=== PATIENT | female | born 1980 | race Caucasian/White ===

== ENCOUNTER 2017-11-26 08:45 | Emergency (ER) | payer BC ==
[2017-11-26 09:07] VITALS: RESP 18; O2SAT 100
[2017-11-26 09:19] VITALS: BMI 29.9
--- NOTE | 2017-11-26 09:49 | RAD ---
HISTORY: cough COMPARISON: 09/13/2014 TECHNIQUE: Chest PA and lateral FINDINGS: LUNGS: No active pulmonary disease. PLEURA: No significant pleural effusion identified. No pneumothorax apparent. CARDIOVASCULAR: Normal. OSSEOUS STRUCTURES: No significant abnormalities. VISUALIZED UPPER ABDOMEN: Normal. OTHER FINDINGS: None. IMPRESSION: No active disease.
--- NOTE | 2017-11-26 10:14 | C.PDOC ---
History Of Present Illness 37 y/o female presents hx of a -fib compliant with medication and a 4 day hx of fever, sore throat, and a non productive cough. The patient has no medication for current symptoms. The patient has not taken temperature but feels warm. The patient denies Chest pain, sob, and palpations. Time Seen by Provider: 11/26/17 09:13 Chief Complaint (Nursing): Flu-like Symptoms History Per: Patient History/Exam Limitations: no limitations Onset/Duration Of Symptoms: Days Current Symptoms Are (Timing): Still Present Associated Symptoms: denies: Fever, Chills Past Medical History Reviewed: Historical Data, Nursing Documentation, Vital Signs Vital Signs: Last Vital Signs Temp 97.9 F 11/26/17 10:21 Pulse 77 11/26/17 10:21 Resp 18 11/26/17 10:21 BP 103/71 11/26/17 10:21 Pulse Ox 100 11/26/17 11:17 - Medical History PMH: Atrial Fibrillation, HTN, Kidney Stones Family History: States: No Known Family Hx - Social History Hx Tobacco Use: No Hx Alcohol Use: No Hx Substance Use: No - Immunization History Hx Tetanus Toxoid Vaccination: No Hx Influenza Vaccination: No Hx Pneumococcal Vaccination: No Review Of Systems Except As Marked, All Systems Reviewed And Found Negative. Constitutional: Positive for: Fever. Negative for: Chills ENT: Positive for: Throat Pain Respiratory: Positive for: Cough (non productive ). Negative for: Shortness of Breath, Wheezing Gastrointestinal: Negative for: Nausea, Vomiting, Diarrhea Skin: Negative for: Rash Physical Exam - Physical Exam Appears: Non-toxic, No Acute Distress, Other (benign ) Skin: Dry Head: Atraumatic, Normacephalic Oral Mucosa: Moist Neck: Normal ROM, Supple Chest: Symmetrical Cardiovascular: Rhythm Regular Respiratory: Normal Breath Sounds, No Rales, No Rhonchi Extremity: Capillary Refill (2<sec.) Neurological/Psych: Oriented x3, Normal Speech, Normal Cognition Gait: Steady ED Course And Treatment O2 Sat by Pulse Oximetry: 100 (RA) Progress Note: The patient is afebrile. The chest x- ray is negative. The patient is positive for Bronchitis and is advised to have a 1-2 day follow up with the PMD for further evaluation. Medical Decision Making Medical Decision Making: HISTORY: cough COMPARISON: 09/13/2014 TECHNIQUE: Chest PA and lateral FINDINGS: LUNGS: No active pulmonary disease. PLEURA: No significant pleural effusion identified. No pneumothorax apparent. CARDIOVASCULAR: Normal. OSSEOUS STRUCTURES: No significant abnormalities. VISUALIZED UPPER ABDOMEN: Normal. OTHER FINDINGS: None. IMPRESSION: No active disease. Disposition Counseled Patient/Family Regarding: Studies Performed, Diagnosis, Need For Followup, Rx Given - Disposition Referrals: [facility] [Outside] Disposition: HOME/ ROUTINE Disposition Time: 10:12 Condition: STABLE Additional Instructions: follow up with clinic or your doctor in 2 days call to make an appointment take medications as prescribed return to hospital if symptoms worsens or progress Prescriptions: Azithromycin [Zithromax] 250 mg PO DAILY #4 tab Hydrocodone/Chlorpheniramine [Tussionex] 5 ml PO QPM #80 ml Instructions: Acute Bronchitis (ED) Forms: Gen Discharge Inst Iraqi, [facility] (Kittitian), [facility] (Iraqi), Work Excuse Print Language: IRISH - Clinical Impression Clinical Impression: Bronchitis - Scribe Statement The provider has reviewed the documentation as recorded by the Scribe Kylee Marks
[2017-11-26 10:22] VITALS: BP 103/71; PULSE 77; TEMP 97.9
== END 2017-11-26 10:23 | disposition home or self-care (01) ==
LOC: C.ER 08:45
DX: J40 Bronchitis, not specified as acute or chronic (principal); I10 Essential (primary) hypertension; I48.91 Unspecified atrial fibrillation